=== PATIENT | male | born 1960 | race African-American/Black ===

== ENCOUNTER 2021-11-21 19:43 | Emergency (ER) | payer OTHER ==
[~2021-11-21] VITALS: Ht 180.3 cm; Wt 99.8 kg
[2021-11-21 20:55] LABS: HEMATOCRIT 44.6 % (36.7-47.1); MEAN CORPUSCULAR VOLUME 102.8 fL (73.0-96.2); PLATELET COUNT (AUTO) 248 K/uL (152-348)
[2021-11-21 21:15] LABS: CREATININE 1.2 mg/dL (0.6-1.3); POTASSIUM 3.9 mmol/L (3.5-5.1)
[2021-11-21 21:21] LABS: BILIRUBIN,DIRECT 0.2 mg/dL (0.0-0.2); BILIRUBIN,TOTAL 0.5 mg/dL (0.2-1.0); TOTAL PROTEIN, SERUM 8.2 g/dL (6.4-8.2)
--- NOTE | 2021-11-21 22:56 | NUR ---
Patient discharged to home in stable condition. Written and verbal after care instructions given. Patient verbalizes understanding of instructions. Stressed follow up or return to ER for worsening s/s. Steady gait, denies any pain/discomfort. No SOB or labored breathing. Afebrile. Denies any heart palpitations. Vitals Stable.
[2021-11-21 22:57] VITALS: BP 148/80
== END 2021-11-21 22:59 | disposition home or self-care (01) ==
LOC: ER 19:49
DX: R00.2 Palpitations (principal); R94.31 Abnormal electrocardiogram [ECG] [EKG]; G47.30 Sleep apnea, unspecified; R03.0 Elevated blood-pressure reading, without diagnosis of hypertension
CPT/HCPCS: 36415; 70030-TC; 85025; 93005; A4663